=== PATIENT | male | born 1990 | race American Indian/Alaskan Native ===

== ENCOUNTER 2023-06-01 16:09 | Emergency (ER) | payer BC ==
[2023-06-01] MEDS ORDERED: Proparacaine 0.5% Ophth Soln 15 ML Bottle EYERT ONE (16:30)
[2023-06-01] MEDS ORDERED: Ketorolac 0.5% Ophth Soln 5 ML Bottle EYERT ONE (17:04)
[2023-06-01] MEDS ORDERED: Ciprofloxacin 0.3% Ophth Soln 5 ML Bottle EYERT SCH (17:15)
== END 2023-06-01 17:20 | disposition home or self-care (01) ==
LOC: JD.ED 16:09
DX: T15.01XA Foreign body in cornea, right eye, initial encounter (principal)
CPT/HCPCS: 65222; 99283; A9270; 65220; J3490